=== PATIENT | male | born 2000 | race Caucasian/White ===

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

== ENCOUNTER 2023-01-20 12:09 | Emergency (ER) | payer OTHER, SELFPAY ==
[2023-01-20 12:09] VITALS: BP 133/86; PULSE 88; RESP 18; TEMP 37.4; O2SAT 99; BMI 30.7
--- NOTE | 2023-01-20 13:02 | EXP.UTC ---
Discharge Plan Disposition Patient Disposition: Home, Self-Care Condition: Good Prescriptions Prescriptions: No Action prednisone 20 MG tablet 20 mg PO BID cephalexin 500 MG capsule 500 mg PO QID Referrals Follow up/Referrals: Shruthi Sanchez [Primary Care Provider] - See instructions Activity Restrictions/Add. Instructions Additional Instructions/Restrictions: Drink plenty of fluids. Take tylenol or ibuprofen for pain or fever. Take the medications as directed. Follow up with your regular doctor. GO TO THE ER FOR ANY WORSENING SYMPTOMS Clinical Impressions Clinical Impression: Sinusitis Stand Alone Forms Stand Alone Forms: Work/School Release Instructions Patient Instructions: DI for Sinusitis, Sinusitis Discharge ED Provider[place] Delfino Lindquist [facility] [place] General Stated complaint: sinus pressure, sore throat Time Seen by Provider: 01/20/23 13:02 History of Present Illness Provider Complaint: He states that for the past 2 days he has had worsening sinus congestion and ear pain. He denies any fever/chills. Related Data Allergies Allergy/AdvReac Type Severity Reaction Status Date / Time No Known Allergies Allergy Verified 01/20/23 13:20 [facility] Disclaimer: The information contained in this section may have been updated after the patient was seen, as this information can be updated by other users. Social History Smoking Status: Never smoker alcohol intake: never current occupational status: other Travel in the last 8 weeks: None ROS Obtained: Yes All systems reviewed & no additional complaints except as documented Constitutional Constitutional: Reports poor appetite Eyes Eyes: Reports system reviewed and no additional complaints, except as documented ENT Ears, Nose, Mouth, and Throat: Reports as per HPI Cardiovascular Cardiovascular: Reports system reviewed and no additional complaints, except as documented and Denies chest pain Respiratory Respiratory: Denies shortness of breath, Denies chest congestion, Reports cough, Denies stridor and Denies wheezing Gastrointestinal Gastrointestingal: Reports system reviewed and no additional complaints, except as documented; Denies abdominal pain, diarrhea or vomiting Musculoskeletal Musculoskeletal: Reports system reviewed and no additional complaints, except as documented and Denies arthralgias Integumentary/Breasts Skin/Breast: Reports system reviewed and no additional complaints, except as documented and Denies rash Neurologic Neurologic: Denies paresthesias Allergic/Immunologic Allergic/Immunologic: Denies wheezing Physical Exam General General appearance: alert and in no apparent distress Eye Eye exam: Present normal appearance, PERRL and EOMI ENT ENT exam: Present mucous membranes moist and normal external ear exam Expanded ENT Exam External ear exam: Present normal external inspection TM/Canal exam: Bilateral TM: erythema and bulging Nose exam: Absent sinus tenderness Nasal speculum exam: Bilateral: normal Mouth exam: Present normal external inspection; Absent drooling Teeth exam: Present normal inspection Throat exam: Present tonsillar erythema and tonsillomegaly Neck Neck exam: Present normal inspection, full ROM and trachea midline; Absent tenderness, lymphadenopathy or thyromegaly Chest Chest inspection: Present normal inspection and symmetric chest wall rise; Absent tenderness or rash Respiratory Respiratory exam: Present normal lung sounds bilaterally; Absent respiratory distress, wheezes, stridor or accessory muscle use Cardiovascular Cardiovascular exam: Present regular rate, normal rhythm and normal heart sounds Abdominal Exam Abdominal exam: Present soft; Absent distention, tenderness, guarding, rebound or rigidity Extremities Exam Extremities exam: Present normal inspection, full ROM and normal capillary refill; Absent tenderness or calf tenderness Back Exam Back exam: Present normal inspection and fu
[2023-01-20 13:28] LABS: UTC Strep Screen (Rapid) Negative (Negative)
[2023-01-20 13:29] LABS: UTC Influenza A Antigen Negative (Negative); UTC Influenza B Antigen Negative (Negative)
[2023-01-20 13:30] VITALS: BP 133/86; PULSE 88; RESP 18; TEMP 37.4; O2SAT 99
== END 2023-01-20 13:30 | disposition home or self-care (01) ==
PROVIDERS: Emergency Provider Nurse Practitioner Family; PCP Nurse Practitioner Family
DX: J01.90 Acute sinusitis, unspecified (principal)
CPT/HCPCS: 87635; 87804; 87880; 99212; 99214; G0463

== ENCOUNTER 2023-08-12 09:51 | Outpatient (CLI) | payer OTHER, SELFPAY ==
[2023-08-12 10:08] LABS: Basophils % 0.8 % (0.1-2.0); Eosinophils # 0.1 K/mm3 (0.0-0.4); Eosinophils % 2.1 % (0.1-12.0); Hematocrit 47.3 % (42.0-52.0); Hemoglobin 16.1 g/dL (14.1-18.0); Lymphocytes # 1.2 K/mm3 (0.7-4.5); Lymphocytes % 22.9 % (10-50); Mean Corpuscular Volume 91.2 fl (80-94); Mean Platelet Volume 7.5 fl (7.4-10.4); Monocytes # 0.4 K/mm3 (0.1-1.0); Monocytes % 7.6 % (1.7-9.3); Neutrophils # 3.5 K/mm3 (1.8-7.8); Neutrophils % 66.7 % (37.0-80.0); Platelet Count 273 K/mm3 (142-424); Red Blood Count 5.19 M/mm3 (4.60-6.20); Red Cell Distribution Width 12.9 % (11.5-17.5); White Blood Count 5.2 K/mm3 (4.8-10.8)
[2023-08-12 10:29] LABS: Chloride 108 mmol/L (98-107); Sodium 140 mmol/L (136-145)
[2023-08-12 10:30] LABS: Potassium 4.2 mmoL/L (3.5-5.1)
[2023-08-12 10:32] LABS: Alanine Aminotransferase 71 U/L (12-78); Albumin Level 4.4 g/dl (3.5-5.0); Albumin/Globulin Ratio 1.8 (1.1-1.8); Alkaline Phosphatase 68 U/L (38-126); Anion Gap 10.2 mEq/L (5-15); Aspartate Amino Transferase 39 U/L (17-59); Bilirubin,Total 1.1 mg/dl (0.2-1.3); Blood Urea Nitrogen 15 mg/dl (9-20); Carbon Dioxide 26 mmol/L (22.0-30.0); Estimated Glomerular Filt Rate 142 ml/min (>60); GFR (African American) 172 ML/MIN (>60); Globulin 2.4 g/dL (1.3-3.2); Total Protein,Serum 6.8 g/dl (6.3-8.2)
[2023-08-12 10:33] LABS: Calcium 9.8 mg/dl (8.4-10.2); Glucose 93 mg/dl (74-100); Hemoglobin A1C 4.8 % (4.0-6.0)
[2023-08-12 10:50] LABS: Triiodothryronine (T3) Uptake 33 % (23.5-40.5)
[2023-08-12 10:51] LABS: Free Thyroxine Index 2.6 ug/dL (5.93-13.13); T4 (Thyroxine) 7.9 ug/dl (5.53-11.0)
[2023-08-12 11:04] LABS: Thyroid Stimulating Hormone 2.13 uIU/mL (0.465-4.68)
== END 2023-08-12 23:59 | disposition home or self-care (01) ==
LOC: LAB 09:53
PROVIDERS: PCP Nurse Practitioner Family; Visit Provider Nurse Practitioner Family
DX: R04.0 Epistaxis (principal); R53.83 Other fatigue; B37.2 Candidiasis of skin and nail; Z83.3 Family history of diabetes mellitus
CPT/HCPCS: 36415; 80053; 83036; 84436; 84443; 84479; 85025

== ENCOUNTER 2023-10-20 15:41 | Outpatient (CLI) | payer SELFPAY | END 2023-10-20 16:38 | disposition home or self-care (01) | PROVIDERS: PCP Internal Medicine Adolescent Medicine; Visit Provider Nurse Practitioner Family | DX: Z02.4 Encounter for examination for driving license (principal) ==

== ENCOUNTER 2023-11-01 08:40 | Emergency (ER) | payer OTHER, SELFPAY ==
[2023-11-01 08:42] VITALS: BP 170/103; PULSE 66; RESP 16; TEMP 36.7; O2SAT 100; BMI 27.1
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
[2023-11-01 08:53] VITALS: PULSE 71; O2SAT 99
[2023-11-01 09:00] VITALS: BP 159/96; PULSE 67; O2SAT 97
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
[2023-11-01 10:55] VITALS: BP 159/96; PULSE 67; RESP 16; TEMP 36.7; O2SAT 97
== END 2023-11-01 10:55 | disposition home or self-care (01) ==
PROVIDERS: Emergency Provider Emergency Medicine; PCP Internal Medicine Adolescent Medicine
DX: S59.902A Unspecified injury of left elbow, initial encounter (principal); V48.7XXA Person on outside of car injured in noncollision transport accident in traffic accident, initial encounter; M25.522 Pain in left elbow; Y92.410 Unspecified street and highway as the place of occurrence of the external cause
CPT/HCPCS: 73060; 73080; 73090; 99283

== ENCOUNTER 2023-11-02 10:01 | Outpatient (CLI) | payer BC, SELFPAY ==
--- NOTE | 2023-11-02 10:32 | XR_ITS ---
FINAL REPORT CLINICAL HISTORY: MID TO LOW BACK PAIN FINDINGS: AP, lateral, and swimmer's views of the thoracic spine were obtained. There is no prior exam for comparison. There is no acute fracture or acute malalignment. Vertebral body height is preserved. Paraspinal soft tissues are within normal limits. IMPRESSION: No acute osseous abnormality of the thoracic spine. Authenticated and [facility]
--- NOTE | 2023-11-02 10:33 | XR_ITS ---
FINAL REPORT CLINICAL HISTORY: MID LOWER BACK PAIN, LOWER BACK PAIN COMPARISON: None. FINDINGS: AP, lateral, and oblique views of the lumbar spine were obtained. There is no acute fracture or acute malalignment. Vertebral body height is preserved. Disc space height is preserved.. No acute paraspinal abnormality is identified. IMPRESSION: No acute osseous abnormalities lumbar spine. Authenticated and [facility]
== END 2023-11-02 23:59 | disposition home or self-care (01) ==
LOC: RAD 10:06
PROVIDERS: PCP Internal Medicine Adolescent Medicine; Visit Provider Nurse Practitioner Family
DX: M54.6 Pain in thoracic spine (principal); M54.50 Low back pain, unspecified
CPT/HCPCS: 72072; 72110